=== PATIENT | male | born 1985 | race African-American/Black ===

== ENCOUNTER 2018-07-11 08:07 | Emergency (ER) | payer MEDICAID ==
[~2018-07-11] VITALS: Ht 170.2 cm; Wt 68.6 kg
[2018-07-11 08:10] VITALS: BP 112/64
--- NOTE | 2018-07-11 09:02 | NUR ---
CARE FOR DC PROVIDED. PT SITTING ON GURNEY, NO ACUTE DISTRESS NOTED. NO IV TO DC, REVIEWED DC INSTRUCTIONS WITH PT, UNDERSTANDING VERBALIZED. PT LEFT AMB, GAIT STEADY.
== END 2018-07-11 09:05 | disposition home or self-care (01) ==
LOC: ED 08:54
DX: K08.89 Other specified disorders of teeth and supporting structures (principal); F17.200 Nicotine dependence, unspecified, uncomplicated
CPT/HCPCS: 99283

== ENCOUNTER 2018-08-06 06:55 | Emergency (ER) | payer MEDICAID ==
[~2018-08-06] VITALS: Ht 167.6 cm; Wt 66.0 kg
[2018-08-06] MEDS ORDERED: DICYCLOMINE 10 MG CAPSULE PO ONE (07:30)
[2018-08-06] MEDS ORDERED: ONDANSETRON ODT 4 MG PO ONE (07:30)
--- NOTE | 2018-08-06 07:34 | NUR ---
PT AMBULATORY TO ROOM 15 W/ C/O N/V AT 0100 AND 0500 THIS AM. PT ALSO HAS C/O ABD PAIN THROUGHOUT THAT COMES/GOES. PAIN INCONSISTENT. PT RESTING ON GURNEY. NADN. VSS. WARM BLANKET PROVIDED. DENIES ABD SURGERY.
[2018-08-06] MEDS ORDERED: DICYCLOMINE 10 MG CAPSULE ONE (07:37)
[2018-08-06] MEDS ORDERED: ONDANSETRON ODT 4 MG ONE (07:37)
[2018-08-06 07:38] LABS: MEAN CORPUSCULAR HEMOGLOBIN 30.8 pg (27.5-34.5); MEAN CORPUSCULAR HGB CONC 33.6 g/dL (33.2-36.2); MEAN CORPUSCULAR VOLUME 91.7 fL (81-97); MEAN PLATELET VOLUME 8.3 fL (7.4-10.4); PLATELET COUNT 263 x10^3/uL (130-400); RED BLOOD COUNT 5.15 x10^6/uL (4.38-5.82); RED CELL DISTRIBUTION WIDTH 13.3 % (9.4-14.8)
[2018-08-06 07:40] VITALS: BP 107/76
--- NOTE | 2018-08-06 07:41 | NUR ---
PT RESTING ON [place]. VSS. C/O HA. SANDS NOTIFIED.
[2018-08-06 07:46] LABS: ALANINE AMINOTRANSFERASE 16 U/L (12-78); ALBUMIN 4.3 g/dL (3.4-5.0); ANION GAP 6 mmol/L (5-15); CALCIUM 9.1 mg/dL (8.5-10.1); CHLORIDE 110 mmol/L (98-107); CREATININE 1.29 mg/dL (0.7-1.3)
[2018-08-06 07:48] LABS: BASOPHILS # (AUTO) 0.01 x10^3/uL (0-0.1); BASOPHILS % (AUTO) 0 % (0-1); EOSINOPHILS # (AUTO) 0.02 x10^3/uL (0-0.4); EOSINOPHILS % (AUTO) 0 % (1-7); LYMPHOCYTES # (AUTO) 0.78 x10^3/uL (1-3.4); LYMPHOCYTES % (AUTO) 11 % (22-44); MD NO; MONOCYTES # (AUTO) 0.59 x10^3/uL (0.2-0.8); MONOCYTES % (AUTO) 8 % (2-9); NEUTROPHILS # (AUTO) 5.75 x10^3/uL (1.8-6.8); NEUTROPHILS % (AUTO) 80 % (42-75)
[2018-08-06 07:49] LABS: ALKALINE PHOSPHATASE 103 U/L (45-117); BILIRUBIN,TOTAL 0.5 mg/dL (0.2-1.0); TOTAL PROTEIN 7.6 g/dL (6.4-8.2)
[2018-08-06] MEDS ORDERED: IBUPROFEN 600 MG TABLET ONE (08:05)
[2018-08-06] MEDS ORDERED: CALCIUM CARBONATE 500 MG TAB.CHEW ONE (08:19)
[2018-08-06] MEDS ORDERED: CALCIUM CARBONATE 500 MG TAB.CHEW PO ONE (08:30)
[2018-08-06] MEDS ORDERED: IBUPROFEN 600 MG TABLET PO ONE (09:00)
== END 2018-08-06 08:28 | disposition home or self-care (01) ==
LOC: ED 07:51
DX: R11.2 Nausea with vomiting, unspecified (principal); R19.7 Diarrhea, unspecified; R10.84 Generalized abdominal pain
CPT/HCPCS: 36415; 80053; 83690; 85025; 99284; Q0162

== ENCOUNTER 2018-09-07 07:11 | Emergency (ER) | payer MEDICAID ==
[~2018-09-07] VITALS: Ht 170.2 cm; Wt 65.0 kg
[2018-09-07 07:14] VITALS: BP 118/72
[2018-09-07] MEDS ORDERED: CARB200T PO (07:26)
[2018-09-07] MEDS ORDERED: TOPI100T24 PO (07:26)
== END 2018-09-07 07:56 | disposition home or self-care (01) ==
LOC: ED 07:54
DX: G40.909 Epilepsy, unspecified, not intractable, without status epilepticus (principal); Z76.0 Encounter for issue of repeat prescription
CPT/HCPCS: 99283

== ENCOUNTER 2018-12-09 11:58 | Emergency (ER) | payer MEDICAID ==
[~2018-12-09] VITALS: Ht 170.2 cm; Wt 62.3 kg
[~2018-12-09 11:58] MED LIST: CARB200T PO; TOPI100T24 PO
[2018-12-09 12:02] VITALS: BP 99/51
== END 2018-12-09 12:27 | disposition home or self-care (01) ==
LOC: ED 12:25
DX: G40.909 Epilepsy, unspecified, not intractable, without status epilepticus (principal); Z76.0 Encounter for issue of repeat prescription
CPT/HCPCS: 99283

== ENCOUNTER 2019-06-07 00:27 | Emergency (ER) | payer SELFPAY ==
[~2019-06-07] VITALS: Ht 170.2 cm; Wt 62.5 kg
[~2019-06-07 00:27] MED LIST changes: +TOPI200T25 PO
[2019-06-07] MEDS ORDERED: ONDANSETRON 2MG/ML, 2ML IVPush ONE (01:00)
[2019-06-07] MEDS ORDERED: MORPHINE SULFATE 4 MG/ML, 1ML IVPush PRN (01:00)
[2019-06-07 01:08] LABS: BASOPHILS # (AUTO) 0.13 x10^3/uL (0-0.1); BASOPHILS % (AUTO) 2 % (0-1); EOSINOPHILS % (AUTO) 1 % (1-7); LYMPHOCYTES # (AUTO) 2.31 x10^3/uL (1-3.4); LYMPHOCYTES % (AUTO) 31 % (22-44); MD NO; MEAN CORPUSCULAR HEMOGLOBIN 30.8 pg (27.5-34.5); MEAN CORPUSCULAR VOLUME 93.4 fL (81-97); MEAN PLATELET VOLUME 8.4 fL (7.4-10.4); MONOCYTES # (AUTO) 0.52 x10^3/uL (0.2-0.8); MONOCYTES % (AUTO) 7 % (2-9); NEUTROPHILS # (AUTO) 4.44 x10^3/uL (1.8-6.8); NEUTROPHILS % (AUTO) 59 % (42-75); PLATELET COUNT 292 x10^3/uL (130-400); RED BLOOD COUNT 4.93 x10^6/uL (4.38-5.82); RED CELL DISTRIBUTION WIDTH 14.2 % (9.4-14.8)
--- NOTE | 2019-06-07 01:08 | NUR ---
BREAK RN: PT REFUSING TO PROVIDE URINE SAMPLE AT THIS TIME. STATING "YOU CRAZY MAN, YOU DON'T MAKE NO SENSE". PT EDUCATED ON THE REASON FOR THE UA, STILL REFUSES. WILL MAKE ERP AWARE.
[2019-06-07 01:09] LABS: ALANINE AMINOTRANSFERASE 25 U/L (12-78); ALBUMIN 4.1 g/dL (3.4-5.0); ANION GAP 7 mmol/L (5-15); CALCIUM 8.9 mg/dL (8.5-10.1); CHLORIDE 108 mmol/L (98-107); CREATININE 1.08 mg/dL (0.7-1.3)
[2019-06-07 01:11] LABS: ALKALINE PHOSPHATASE 81 U/L (45-117); BILIRUBIN,TOTAL 0.3 mg/dL (0.2-1.0); TOTAL PROTEIN 7.8 g/dL (6.4-8.2)
--- NOTE | 2019-06-07 01:26 | NUR ---
BREAK RN: THIS RN WENT BACK IN THE ROOM TO EDUCATE PT ON THE NEED FOR THE URINE SAMPLE. THE PT AGREES. URINE SAMPLE PROVIDED. SENT TO LAB
--- NOTE | 2019-06-07 01:29 | NUR ---
REPORT GIVEN TO PRIMARY RN, MICHELLE
[2019-06-07 01:36] LABS: MICROSCOPIC NOT IND
[2019-06-07 01:39] LABS: CULTURE INDICATED? NO
[2019-06-07 02:05] VITALS: BP 121/85
== END 2019-06-07 02:09 | disposition home or self-care (01) ==
LOC: ED 01:28
DX: K29.00 Acute gastritis without bleeding (principal)
CPT/HCPCS: 36415; 80053; 81003; 83690; 85025; 99283

== ENCOUNTER 2020-04-20 11:17 | Emergency (ER) | payer SELFPAY ==
[~2020-04-20] VITALS: Ht 167.6 cm; Wt 64.3 kg
[2020-04-20 11:26] VITALS: BP 111/69
== END 2020-04-20 12:55 | disposition home or self-care (01) ==
LOC: ED 12:07
DX: R42 Dizziness and giddiness (principal); F17.200 Nicotine dependence, unspecified, uncomplicated; Z20.828 Contact with and (suspected) exposure to other viral communicable diseases
CPT/HCPCS: 99283; U0003